=== PATIENT | male | born 1975 | race Caucasian/White ===

== ENCOUNTER 2019-05-13 16:18 | Inpatient (IN) | payer MEDICAID ==
[~2019-05-13] VITALS: Ht 172.7 cm; Wt 96.2 kg
--- NOTE | 2019-05-13 16:40 | NUR ---
ED Nurse Note: Patient waliked into ED c/o chest pain in the sternal area attepted to relieve chest pain since last night. patient reports he took nitroglycerin tablets (4) and aspirin today to relieve chest pain, but unable to relieve the pain. Last nitroglycerin was taken 30 minutes prior to arrival. patient reports he had stress test which result was abnormal on Friday, but left AMA.
[2019-05-13] MEDS ORDERED: ASPIRIN325 MG ORAL (16:57)
[2019-05-13] MEDS ORDERED: LISINOPRIL10 MG ORAL (16:57)
[2019-05-13] MEDS ORDERED: METOPROLOL TART25 MG ORAL (16:57)
[2019-05-13] MEDS ORDERED: PLAVIX75 MG ORAL (16:57)
[2019-05-13] MEDS ORDERED: ATORVASTATIN CA40 MG ORAL (16:57)
[2019-05-13] MEDS ORDERED: Morphine Sulfate 4mg/ml Inj (IV USE ONLY) IVP ONE ×2 (17:00→19:30)
[2019-05-13 17:08] VITALS: BP 130/91
[2019-05-13 17:12] LABS: BASOPHILS % (AUTO) 0.6 % (0.0-2.0); EOSINOPHILS % (AUTO) 1.7 % (0.0-3.0); HEMATOCRIT 35.8 % (42.0-52.0); HEMOGLOBIN 11.3 G/DL (14.2-18.0); LYMPHOCYTES % (AUTO) 21.9 % (20.0-45.0); MEAN CORPUSCULAR VOLUME 65 FL (80-99); MONOCYTES % (AUTO) 7.7 % (1.0-10.0); NEUTROPHILS % (AUTO) 68.1 % (45.0-75.0); PLATELET COUNT 220 K/UL (150-450); RED BLOOD COUNT 5.49 M/UL (4.70-6.10); RED CELL DISTRIBUTION WIDTH 14.5 % (11.6-14.8); WHITE BLOOD COUNT 5.5 K/UL (4.8-10.8)
--- NOTE | 2019-05-13 17:28 | Diagnostic Imaging Report ---
Indication: Chest pain Technique: One view of the chest Comparison: none Findings: Inspiration is suboptimal. The lungs and pleural spaces are clear. The heart size is normal Impression: Negative
[2019-05-13 17:40] LABS: ALANINE AMINOTRANSFERASE 35 U/L (12-78); ALBUMIN/GLOBULIN RATIO 1.3 (1.0-2.7); ALKALINE PHOSPHATASE 77 U/L (46-116); ANION GAP 7 mmol/L (5-15); ASPARTATE AMINO TRANSFERASE 22 U/L (15-37); BILIRUBIN,TOTAL 0.3 MG/DL (0.2-1.0); BLOOD UREA NITROGEN 17 mg/dL (7-18); CALCIUM 9.1 MG/DL (8.5-10.1); CARBON DIOXIDE 28 MMOL/L (21-32); CHLORIDE 99 MMOL/L (98-107); CKMB 0.7 NG/ML (0.0-3.6); CREATINE KINASE 60 U/L (26-308); POTASSIUM 5.3 MMOL/L (3.5-5.1); SODIUM 134 MMOL/L (136-145)
[2019-05-13] MEDS ORDERED: Insulin Human Regular 100units/ml 3ml IV ONE (18:00)
--- NOTE | 2019-05-13 18:57 | Emergency Room Report ---
History of Present Illness General Chief Complaint: Chest Pain Source: Patient Present Illness HPI 43-year-old male presents ED for evaluation. Patient complaining of chest pain started 2 days ago. Pressure-like, 7 out of 10, radiating to the left arm. States he took nitro with some relief but chest pain return. States he was at [facility] 2 days ago and had a positive stress test. Was told to be admitted but left AMA. Patient states he has had prior stents placed at [facility]. States chest pain did not resolve so he came today to the ED. Denies alcohol or drug use. No other aggravating relieving factors. Denies any other associated symptoms Allergies: Coded Allergies: KETOROLAC (Verified Allergy, Unknown, 05/13/19) Uncoded Allergies: FISH (Allergy, Unknown, 05/13/19) PENICILLIN (Allergy, Unknown, 05/13/19) Patient History Past Medical History: HTN, DC, CAD Past Surgical History: none Pertinent Family History: none Social History: Denies: smoking, alcohol use, drug use Immunizations: UTD Reviewed Nursing Documentation: PMH: Agreed; PSxH: Agreed Nursing Documentation-PMH Past Medical History: No History, Except For Hx Cardiac Problems: Yes - Stents x4, CHF Review of Systems All Other Systems: negative except mentioned in HPI Physical Exam Vital Signs Date Time Temp Pulse Resp B/P (MAP) Pulse Ox O2 Delivery O2 Flow Rate FiO2 05/13/19 16:32 98.2 100 16 129/70 (89) 99 Room Air Sp02 EP Interpretation: reviewed, normal General Appearance: no apparent distress, alert, GCS 15, non-toxic Head: normocephalic, atraumatic Eyes: bilateral eye normal inspection, bilateral eye PERRL ENT: hearing grossly normal, normal pharynx, no angioedema, normal voice Neck: full range of motion, supple/symm/no masses Respiratory: chest non-tender, lungs clear, normal breath sounds, speaking full sentences Cardiovascular #1: regular rate, rhythm, no edema Cardiovascular #2: 2+ carotid (R), 2+ carotid (L), 2+ radial (R), 2+ radial (L) , 2+ dorsalis pedis (R), 2+ dorsalis pedis (L) Gastrointestinal: normal bowel sounds, non tender, soft, non-distended, no guarding, no rebound Rectal: deferred Genitourinary: normal inspection, no CVA tenderness Musculoskeletal: back normal, gait/station normal, normal range of motion, non- tender Neurologic: alert, oriented x3, responsive, motor strength/tone normal, sensory intact, speech normal Psychiatric: judgement/insight normal, memory normal, mood/affect normal, no suicidal/homicidal ideation Reflexes: 3+ bicep (R), 3+ bicep (L), 3+ tricep (R), 3+ tricep (L), 3+ knee (R) , 3+ knee (L) Skin: normal color, no rash, warm/dry, well hydrated Lymphatic: no adenopathy Medical Decision Making Diagnostic Impression: Primary Impression: ACS (acute coronary syndrome) Additional Impression: Hyperglycemia ER Course Hospital Course 43-year-old male presents ED complaining of left-sided chest pain, improved with nitro then returned. h/o stents Differential diagnoses include: DC/unstable angina, contusion, muscle strain, PTX, rib fracture Clinical course Patient placed on stretcher. 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 After initial history and physical I ordered labs, EKG, chest x-ray, morphine labs reviewed- no leukocytosis, hb/hct stable, glucose 540 no evidence of DKA, trop negative EKG - NSR, no acute ischemic changes interpreted by me Chest x-ray- no acute process discussed findings with patient. No prior history of diabetes. Given insulin here. Given aspirin. Patient scheduled to see Radha Purvis as outpatient but has not yet. Case discussed with Dr Morocho and he agreed to accept the patient to his service for further care and support I. I feel this is a highly complex case requiring extensive working including EKG/Rhythm strip, Xray/CT/US, Blood/urine lab work, repeat exams while in ED, and administration of strong opiates/narcotics for pain control, admission to hospital or close patient follow up. Diagnosis - ACS, hyperglycemia admitted to telemetry in serious condition Labs Test 05/13/19 17:05 05/13/19 18:16 White Blood Count 5.5 K/UL (4.8-10.8) Red Blood Count 5.49 M/UL (4.70-6.10) Hemoglobin 11.3 G/DL (14.2-18.0) Hematocrit 35.8 % (42.0-52.0) Mean Corpuscular Volume 65 FL (80-99) Mean Corpuscular Hemoglobin 20.5 PG (27.0-31.0) Mean Corpuscular Hemoglobin Concent 31.5 G/DL (32.0-36.0) Red Cell Distribution Width 14.5 % (11.6-14.8) Platelet Count 220 K/UL (150-450) Mean Platelet Volume 6.6 FL (6.5-10.1) Neutrophils (%) (Auto) 68.1 % (45.0-75.0) Lymphocytes (%) (Auto) 21.9 % (20.0-45.0) Monocytes (%) (Auto) 7.7 % (1.0-10.0) Eosinophils (%) (Auto) 1.7 % (0.0-3.0) Basophils (%) (Auto) 0.6 % (0.0-2.0) Sodium Level 134 MMOL/L (136-145) Potassium Level 5.3 MMOL/L (3.5-5.1) Chloride Level 99 MMOL/L (98-107) Carbon Dioxide Level 28 MMOL/L (21-32) Anion Gap 7 mmol/L (5-15) Blood Urea Nitrogen 17 mg/dL (7-18) Creatinine 1.0 MG/DL (0.55-1.30) Estimat Glomerular Filtration Rate > 60 mL/min (>60) Glucose Level 540 MG/DL (74-106) Calcium Level 9.1 MG/DL (8.5-10.1) Total Bilirubin 0.3 MG/DL (0.2-1.0) Aspartate Amino Transf (AST/SGOT) 22 U/L (15-37) Alanine Aminotransferase (ALT/SGPT) 35 U/L (12-78) Alkaline Phosphatase 77 U/L (46-116) Total Creatine Kinase 60 U/L (26-308) Creatine Kinase MB 0.7 NG/ML (0.0-3.6) Creatine Kinase MB Relative Index 1.1 Troponin I 0.000 ng/mL (0.000-0.056) Total Protein 7.2 G/DL (6.4-8.2) Albumin 4.0 G/DL (3.4-5.0) Globulin 3.2 g/dL Albumin/Globulin Ratio 1.3 (1.0-2.7) Urine Opiates Screen Negative (NEGATIVE) Urine Barbiturates Screen Negative (NEGATIVE) Phencyclidine (PCP) Screen Negative (NEGATIVE) Urine Amphetamines Screen Negative (NEGATIVE) Urine Benzodiazepines Screen Negative (NEGATIVE) Urine Cocaine Screen Negative (NEGATIVE) Urine Marijuana (THC) Screen Negative (NEGATIVE) EKG Diagnostic Results Rate: normal Rhythm: NSR ST Segments: no acute changes ASA given to the pt in ED: Yes Rhythm Strip Diag. Results EP Interpretation: yes Rhythm: NSR, no PVC's, no ectopy Chest X-Ray Diagnostic Results Chest X-Ray Diagnostic Results : Chest X-Ray Ordered: Yes # of Views/Limited/Complete: 1 View Indication: Chest Pain EP Interpretation: Yes Interpretation: no consolidation, no effusion, no pneumothorax, no acute cardiopulmonary disease Impression: No acute disease Electronically Signed by: Electronically signed by Isaías Palomares MD Last Vital Signs Date Time Temp Pulse Resp B/P (MAP) Pulse Ox O2 Delivery O2 Flow Rate FiO2 05/13/19 17:09 110 14 Room Air 05/13/19 17:08 98.2 130/91 100 Status: improved Disposition: ADMITTED INPATIENT Condition: Serious Referrals: Radha Purvis MD (PCP) Isaías Palomares MD May 13, 2019 18:57
--- NOTE | 2019-05-13 19:05 | NUR ---
ED Nurse Note: notified Dr. Crowley that patient took aspirin 325 today already. it's ok not to give again. notified Dr. Crowley about patient c/o pain.
--- NOTE | 2019-05-13 19:09 | NUR ---
HAND-OFF: Report given to Dariela GOMEZ. endorsed all plan of care for the patient.
--- NOTE | 2019-05-13 19:15 | NUR ---
ED Nurse Note: RECIEVED REPORT FROM AM NURSE TO RESUME CARE, PT IN BED AWAKE, ALERT AND ORIENTED X 4, ON CARDIAC MONITORING, HAS PATENT IV SITE WITH FLUIDS INFUSING, PT DOES C/O HAVING CHEST PAIN AT 9/10 AND ASKING FOR PAIN MEDS, INFOMADYSON, WILL MEDICATE PT ORDERED AND PREPARE FOR HOSPITAL ADMISSION CARE IS RESUMED.
[2019-05-13 19:30] VITALS: BP 133/57
[2019-05-13] MEDS ORDERED: Nitroglycerin Subl 0.4mg tab SL PRN (19:45)
[2019-05-13] MEDS ORDERED: dilTIAZem HCl 25mg/5ml Inj IV PRN (19:45)
[2019-05-13] MEDS ORDERED: Miralax 17gm pkt ORAL PRN (19:45)
[2019-05-13] MEDS ORDERED: Albuterol/Ipratropium 3ml neb HHN PRN (19:45)
[2019-05-13] MEDS ORDERED: Enalaprilat 1.25mg/ml Inj IV PRN ×2 (19:45→21:30)
[2019-05-13] MEDS ORDERED: Dextrose 50% 25ml Syringe IV PRN (20:00)
--- NOTE | 2019-05-13 20:05 | NUR ---
ED Nurse Note: MEDS GIVEN FOR DIGNA FFECTIVE, PT REPORTS PAIN LEVEL AT 3/10, IS CURRENTLY HAVING BEDSIDE ULTRASOUND DONE, PT REMAINS ON CARDIAC MONITORING, WILL RESUME CARE WHEN COMPLETED.
--- NOTE | 2019-05-13 21:30 | NUR ---
NURSE NOTES: Received patient from ED. Patient ambulatory and steady, alert and oriented x4, calm and cooperative. On room air, no signs of respiratory distress. Oriented patient to the unit. Placed on gambling monitor, sinus rhythm. Skin intact. PIV 22 gauge on left forearm intact, patent, no signs of infiltration. Bed locked, in low position, call light within reach.
[2019-05-13] MEDS: Metoprolol Tartrate 12.5mg TAB ORAL SCH (22:10)
[2019-05-13] MEDS: Morphine Sulfate 2mg/ml Inj(IV/IM USE ONLY) IVP PRN (22:10)
[2019-05-13] MEDS: Heparin 5000 units/ml inj SUBQ SCH (22:19)
[2019-05-13] MEDS: NovoLOG Insulin Flexpen SUBQ SCH (22:20)
[2019-05-13 22:48] VITALS: BP 119/71
[2019-05-13 23:51] VITALS: BP 113/71
[2019-05-14 04:00] VITALS: BP 107/67
[2019-05-14] MEDS: Morphine Sulfate 2mg/ml Inj(IV/IM USE ONLY) IVP PRN ×5 (04:33→23:55)
--- NOTE | 2019-05-14 05:16 | NUR ---
NURSE NOTES: Patient c/o iv site irritation and light pain. Attempted to insert a new iv. Patient refused and insisted that we use a doppler ultrasound to guide the iv insertion. Explained that we use a vein finder to assist with IV insertions. Patient refused and insisted that he will only allow us to insert the iv with doppler ultrasound.
[2019-05-14] MEDS: NovoLOG Insulin Flexpen SUBQ SCH ×4 (05:46→21:22)
[2019-05-14] MEDS: Heparin 5000 units/ml inj SUBQ SCH ×3 (05:47→21:21)
--- NOTE | 2019-05-14 07:36 | NUR ---
HAND-OFF: Report given to Alonzo GOMEZ. Patient in stable condition. Plan of care endorsed.
--- NOTE | 2019-05-14 07:48 | NUR ---
NURSE NOTES: Report received from PATRICIA Hodges. Patient is a/o x 4,resting with open eyes. no c/o pain or acute distress at this time. per report patient iv side is irritated. will try to insert new iv SUKHWINDER. call light and frequent used objects are with in reach. bed in lowest position, rails up x 2 for safety reasons. will continue to monitor.
[2019-05-14 08:00] VITALS: BP 120/64
[2019-05-14 08:05] LABS: BASOPHILS % (AUTO) 0.4 % (0.0-2.0); EOSINOPHILS % (AUTO) 2.9 % (0.0-3.0); HEMATOCRIT 32.5 % (42.0-52.0); HEMOGLOBIN 10.4 G/DL (14.2-18.0); LYMPHOCYTES % (AUTO) 30.8 % (20.0-45.0); MEAN CORPUSCULAR VOLUME 66 FL (80-99); MONOCYTES % (AUTO) 8.5 % (1.0-10.0); NEUTROPHILS % (AUTO) 57.4 % (45.0-75.0); PLATELET COUNT 182 K/UL (150-450); RED BLOOD COUNT 4.94 M/UL (4.70-6.10); RED CELL DISTRIBUTION WIDTH 15.2 % (11.6-14.8); WHITE BLOOD COUNT 4.6 K/UL (4.8-10.8)
[2019-05-14 08:25] LABS: INR 0.9 (0.9-1.1)
[2019-05-14] MEDS: Metoprolol Tartrate 12.5mg TAB ORAL SCH ×2 (08:32→21:15)
[2019-05-14 08:39] LABS: CHOLESTEROL 121 MG/DL (< 200); HDL CHOLESTEROL 41 MG/DL (40-60); TRIGLYCERIDES 35 MG/DL (30-150)
--- NOTE | 2019-05-14 11:11 | NUR ---
CASE MANAGEMENT: INITIAL REVIEW 43 YO M PRESENTED TO ED FROM HOME CC: CP PMHx: HTN. NC. COPD. CHF. STENTS X4. SI:CP. ACS. T 98.2 HR 100 RR 16 B/P 129/70 SATS 99% ON RA NA 134 K 5.3 GLU 540 IS: NS BOLUS X1 MORPHINE IV X1 PATIENT ADMITTED TO TELE 05/13/2019 @ 1737 DCp; PATIENT TO BE DISCHARGED TO HOME ONCE MEDICALLY CLEARED. PLAN OF CARE: 2D ECHO SERIAL TROPONIN CARDIO EVAL 05/14/2019 SI:CP. ACS. T 98.4 HR 79 RR 20 B/P 120/64 SATS 97% ON RA WBC 4.6 TROPONIN (-) X2 IS: LOPRESSOR PO Q12H PLAVIX PO QD LISINOPRIL PO QD INSULIN ASPART SUB AC/HS TELE STATUS DCp; PATIENT TO BE DISCHARGED TO HOME ONCE MEDICALLY CLEARED. PLAN OF CARE: 2D ECHO SERIAL TROPONIN CARDIO EVAL Addendum: 05/14/19 at 1119 by Heidi Alberts CM INTERQUAL MET
[2019-05-14 12:00] VITALS: BP 104/60
--- NOTE | 2019-05-14 12:23 | Consultation ---
History of Present Illness General Date patient seen: May 14, 2019 Chief Complaint: Chest Pain Present Illness HPI 43-year-old male with hx of CAD, 4 coronary stents presented to ED for evaluation of chest pain started 2 days ago. Pressure-like, 7 out of 10, radiating to the left arm. States he took nitro with some relief but chest pain return so he came today to the ED. Denies alcohol or drug use. He is admitted to telemetry for further work up. Allergies: Coded Allergies: FISH DERIVED (Unverified Allergy, Unknown, 05/13/19) KETOROLAC (Verified Allergy, Unknown, 05/13/19) PENICILLINS (Unverified Allergy, Unknown, 05/13/19) Uncoded Allergies: FISH (Allergy, Unknown, 05/13/19) PENICILLIN (Allergy, Unknown, 05/13/19) Medication History Scheduled Aspirin* (Aspirin*), 325 MG ORAL DAILY, (Reported) Atorvastatin Calcium* (Atorvastatin Calcium*), 40 MG ORAL BEDTIME, (Reported) Clopidogrel Bisulfate* (Plavix*), 75 MG ORAL DAILY, (Reported) Lisinopril* (Lisinopril*), 5 MG ORAL DAILY, (Reported) Metoprolol Tartrate* (Metoprolol Tartrate*), 12.5 MG ORAL EVERY 12 HOURS, ( Reported) Patient History Healthcare decision maker Resuscitation status Full Code Advanced Directive on File Past Medical/Surgical History Past Medical/Surgical History: (1) CAD (coronary artery disease) (2) Stented coronary artery (3) Diabetes mellitus Review of Systems All Other Systems: negative except mentioned in HPI Physical Exam General Appearance: WD/WN, no apparent distress Lines, tubes and drains: peripheral HEENT: normocephalic, atraumatic Neck: non-tender, normal alignment Respiratory/Chest: chest wall non-tender, lungs clear Breasts: no masses Cardiovascular/Chest: normal peripheral pulses Genitourinary/Rectal: normal genital exam Last 24 Hour Vital Signs Date Time Temp Pulse Resp B/P (MAP) Pulse Ox O2 Delivery O2 Flow Rate FiO2 05/14/19 09:26 98.4 05/14/19 09:00 Room Air 05/14/19 08:32 79 120/64 05/14/19 08:00 98.4 79 20 120/64 (82) 97 05/14/19 08:00 75 05/14/19 04:00 97.9 58 20 107/67 (80) 98 05/14/19 03:36 61 05/13/19 23:54 92 05/13/19 23:51 98.5 89 20 113/71 (85) 98 05/13/19 22:48 98.3 77 20 119/71 (87) 98 05/13/19 22:29 Room Air 05/13/19 22:10 76 133/57 05/13/19 21:38 75 05/13/19 20:57 98.2 110 14 133/57 100 Room Air 76 05/13/19 20:03 98.2 05/13/19 19:30 98.2 76 14 133/57 100 Room Air 05/13/19 17:33 98.2 05/13/19 17:09 110 14 Room Air 05/13/19 17:08 98.2 110 14 130/91 100 Room Air 05/13/19 16:32 98.2 100 16 129/70 (89) 99 Room Air Intake and Output 05/13/19 05/14/19 19:00 07:00 Intake Total 120 ml Balance 120 ml Other 120 ml # Voids 2 Laboratory Tests Test 05/13/19 17:05 05/13/19 18:16 05/14/19 07:00 White Blood Count 5.5 K/UL (4.8-10.8) 4.6 K/UL (4.8-10.8) L Red Blood Count 5.49 M/UL (4.70-6.10) 4.94 M/UL (4.70-6.10) Hemoglobin 11.3 G/DL (14.2-18.0) L 10.4 G/DL (14.2-18.0) L Hematocrit 35.8 % (42.0-52.0) L 32.5 % (42.0-52.0) L Mean Corpuscular Volume 65 FL (80-99) L 66 FL (80-99) L Mean Corpuscular Hemoglobin 20.5 PG (27.0-31.0) L 21.1 PG (27.0-31.0) L Mean Corpuscular Hemoglobin Concent 31.5 G/DL (32.0-36.0) L 32.0 G/DL (32.0-36.0) Red Cell Distribution Width 14.5 % (11.6-14.8) 15.2 % (11.6-14.8) H Platelet Count 220 K/UL (150-450) 182 K/UL (150-450) Mean Platelet Volume 6.6 FL (6.5-10.1) 7.8 FL (6.5-10.1) Neutrophils (%) (Auto) 68.1 % (45.0-75.0) 57.4 % (45.0-75.0) Lymphocytes (%) (Auto) 21.9 % (20.0-45.0) 30.8 % (20.0-45.0) Monocytes (%) (Auto) 7.7 % (1.0-10.0) 8.5 % (1.0-10.0) Eosinophils (%) (Auto) 1.7 % (0.0-3.0) 2.9 % (0.0-3.0) Basophils (%) (Auto) 0.6 % (0.0-2.0) 0.4 % (0.0-2.0) Sodium Level 134 MMOL/L (136-145) L Potassium Level 5.3 MMOL/L (3.5-5.1) H Chloride Level 99 MMOL/L (98-107) Carbon Dioxide Level 28 MMOL/L (21-32) Anion Gap 7 mmol/L (5-15) Blood Urea Nitrogen 17 mg/dL (7-18) Creatinine 1.0 MG/DL (0.55-1.30) Estimat Glomerular Filtration Rate > 60 mL/min (>60) Glucose Level 540 MG/DL (74-106) *H Calcium Level 9.1 MG/DL (8.5-10.1) Total Bilirubin 0.3 MG/DL (0.2-1.0) Aspartate Amino Transf (AST/SGOT) 22 U/L (15-37) Alanine Aminotransferase (ALT/SGPT) 35 U/L (12-78) Alkaline Phosphatase 77 U/L (46-116) Total Creatine Kinase 60 U/L (26-308) Creatine Kinase MB 0.7 NG/ML (0.0-3.6) Creatine Kinase MB Relative Index 1.1 Troponin I 0.000 ng/mL (0.000-0.056) 0.000 ng/mL (0.000-0.056) Total Protein 7.2 G/DL (6.4-8.2) Albumin 4.0 G/DL (3.4-5.0) Globulin 3.2 g/dL Albumin/Globulin Ratio 1.3 (1.0-2.7) Urine Opiates Screen Negative (NEGATIVE) Urine Barbiturates Screen Negative (NEGATIVE) Phencyclidine (PCP) Screen Negative (NEGATIVE) Urine Amphetamines Screen Negative (NEGATIVE) Urine Benzodiazepines Screen Negative (NEGATIVE) Urine Cocaine Screen Negative (NEGATIVE) Urine Marijuana (THC) Screen Negative (NEGATIVE) Prothrombin Time 9.5 SEC (9.30-11.50) Prothromb Time International Ratio 0.9 (0.9-1.1) Activated Partial Thromboplast Time 22 SEC (23-33) L C-Reactive Protein, Quantitative < 0.4 mg/dL (0.00-0.90) Triglycerides Level 35 MG/DL (30-150) Cholesterol Level 121 MG/DL (< 200) LDL Cholesterol 70 mg/dL (<100) HDL Cholesterol 41 MG/DL (40-60) Cholesterol/HDL Ratio 3.0 (3.3-4.4) L Thyroid Stimulating Hormone (TSH) 3.521 uiU/mL (0.358-3.740) Height (Feet): 5 Height (Inches): 8.00 Weight (Pounds): 212 Medications Current Medications Medications (Trade) Dose Ordered Sig/Geoffrey Route PRN Reason Start Time Stop Time Status Last Admin Dose Admin Acetaminophen (Tylenol) 650 mg Q4H PRN ORAL T>100.5 05/13/19 19:45 06/12/19 19:44 Albuterol/ Ipratropium (Albuterol/ Ipratropium) 3 ml Q4H PRN HHN Shortness of Breath 05/13/19 19:45 05/18/19 19:44 Clopidogrel Bisulfate (Plavix) 75 mg DAILY ORAL 05/14/19 09:00 06/13/19 08:59 05/14/19 08:32 Dextrose (Dextrose 50%) 25 ml Q30M PRN IV Hypoglycemia 05/13/19 20:00 06/12/19 19:45 Dextrose (Dextrose 50%) 50 ml Q30M PRN IV hypoglycemia 05/13/19 20:00 06/12/19 19:59 Diltiazem HCl (Cardizem) 10 mg EVERY HOUR PRN IV heart rate more than 120BPM 05/13/19 19:45 06/12/19 19:44 Enalaprilat (Vasotec) 2.5 mg Q6H PRN IV sbp more than 160 05/13/19 21:30 06/12/19 21:29 UNV Heparin Sodium (Porcine) (Heparin 5000 units/ml) 5,000 units EVERY 8 HOURS SUBQ 05/13/19 22:00 06/12/19 21:59 05/13/19 22:19 Insulin Aspart (NovoLOG) BEFORE MEALS AND HS SUBQ 05/13/19 22:30 06/12/19 22:29 05/14/19 11:17 Lisinopril (Prinivil) 5 mg DAILY ORAL 05/14/19 09:00 06/13/19 08:59 UNV Metoprolol Tartrate (Lopressor) 12.5 mg EVERY 12 HOURS ORAL 05/13/19 22:00 06/12/19 21:59 05/14/19 08:32 Morphine Sulfate (Morphine Sulfate) 2 mg Q4H PRN IVP Severe Pain (Pain Scale 7-10) 05/13/19 19:45 05/20/19 19:44 05/14/19 08:56 Nitroglycerin (Ntg) 0.4 mg Q5MIN X 3 DOSES PRN SL Prn Chest Pain 05/13/19 19:45 06/12/19 19:44 Ondansetron HCl (Zofran) 4 mg Q6H PRN IVP Nausea & Vomiting 05/13/19 19:45 06/12/19 19:44 05/14/19 08:56 Pantoprazole (Protonix) 40 mg DAILY ORAL 05/14/19 09:00 06/13/19 08:59 05/14/19 08:32 Polyethylene Glycol (Miralax) 17 gm DAILYPRN PRN ORAL Constipation 05/13/19 19:45 06/12/19 19:44 Temazepam (Restoril) 15 mg HSPRN PRN ORAL Insomnia 05/13/19 21:00 05/20/19 20:59 Assessment/Plan Problem List: (1) ACS (acute coronary syndrome) ICD Codes: I24.9 - Acute ischemic heart disease, unspecified SNOMED: 441029293 (2) Stented coronary artery ICD Codes: Z95.5 - Presence of coronary angioplasty implant and graft SNOMED: 17357778, 902147937 (3) Hyperglycemia ICD Codes: R73.9 - Hyperglycemia, unspecified SNOMED: 72898143 (4) Diabetes mellitus ICD Codes: E11.9 - Type 2 diabetes mellitus without complications SNOMED: 66644951 (5) CAD (coronary artery disease) ICD Codes: I25.10 - Atherosclerotic heart disease of [place] coronary artery without angina pectoris SNOMED: 71456965 Assessment/Plan: serial ekg, troponin, echocardiogram cardiology to see symptomatic treatment Balta Olsen MD May 14, 2019 12:23
--- NOTE | 2019-05-14 13:50 | Cardiac Electrophysiology PN ---
Subjective Subjective [id number] Objective Last 24 Hour Vital Signs Date Time Temp Pulse Resp B/P (MAP) Pulse Ox O2 Delivery O2 Flow Rate FiO2 05/14/19 12:00 98.5 78 20 104/60 (75) 99 05/14/19 09:26 98.4 05/14/19 09:00 Room Air 05/14/19 08:32 79 120/64 05/14/19 08:00 98.4 79 20 120/64 (82) 97 05/14/19 08:00 75 05/14/19 04:00 97.9 58 20 107/67 (80) 98 05/14/19 03:36 61 05/13/19 23:54 92 05/13/19 23:51 98.5 89 20 113/71 (85) 98 05/13/19 22:48 98.3 77 20 119/71 (87) 98 05/13/19 22:29 Room Air 05/13/19 22:10 76 133/57 05/13/19 21:38 75 05/13/19 20:57 98.2 110 14 133/57 100 Room Air 76 05/13/19 20:03 98.2 05/13/19 19:30 98.2 76 14 133/57 100 Room Air 05/13/19 17:33 98.2 05/13/19 17:09 110 14 Room Air 05/13/19 17:08 98.2 110 14 130/91 100 Room Air 05/13/19 16:32 98.2 100 16 129/70 (89) 99 Room Air Intake and Output 05/13/19 05/14/19 19:00 07:00 Intake Total 120 ml Balance 120 ml Other 120 ml # Voids 2 Laboratory Tests Test 05/13/19 17:05 05/13/19 18:16 05/14/19 07:00 White Blood Count 5.5 K/UL (4.8-10.8) 4.6 K/UL (4.8-10.8) L Red Blood Count 5.49 M/UL (4.70-6.10) 4.94 M/UL (4.70-6.10) Hemoglobin 11.3 G/DL (14.2-18.0) L 10.4 G/DL (14.2-18.0) L Hematocrit 35.8 % (42.0-52.0) L 32.5 % (42.0-52.0) L Mean Corpuscular Volume 65 FL (80-99) L 66 FL (80-99) L Mean Corpuscular Hemoglobin 20.5 PG (27.0-31.0) L 21.1 PG (27.0-31.0) L Mean Corpuscular Hemoglobin Concent 31.5 G/DL (32.0-36.0) L 32.0 G/DL (32.0-36.0) Red Cell Distribution Width 14.5 % (11.6-14.8) 15.2 % (11.6-14.8) H Platelet Count 220 K/UL (150-450) 182 K/UL (150-450) Mean Platelet Volume 6.6 FL (6.5-10.1) 7.8 FL (6.5-10.1) Neutrophils (%) (Auto) 68.1 % (45.0-75.0) 57.4 % (45.0-75.0) Lymphocytes (%) (Auto) 21.9 % (20.0-45.0) 30.8 % (20.0-45.0) Monocytes (%) (Auto) 7.7 % (1.0-10.0) 8.5 % (1.0-10.0) Eosinophils (%) (Auto) 1.7 % (0.0-3.0) 2.9 % (0.0-3.0) Basophils (%) (Auto) 0.6 % (0.0-2.0) 0.4 % (0.0-2.0) Sodium Level 134 MMOL/L (136-145) L Potassium Level 5.3 MMOL/L (3.5-5.1) H Chloride Level 99 MMOL/L (98-107) Carbon Dioxide Level 28 MMOL/L (21-32) Anion Gap 7 mmol/L (5-15) Blood Urea Nitrogen 17 mg/dL (7-18) Creatinine 1.0 MG/DL (0.55-1.30) Estimat Glomerular Filtration Rate > 60 mL/min (>60) Glucose Level 540 MG/DL (74-106) *H Calcium Level 9.1 MG/DL (8.5-10.1) Total Bilirubin 0.3 MG/DL (0.2-1.0) Aspartate Amino Transf (AST/SGOT) 22 U/L (15-37) Alanine Aminotransferase (ALT/SGPT) 35 U/L (12-78) Alkaline Phosphatase 77 U/L (46-116) Total Creatine Kinase 60 U/L (26-308) Creatine Kinase MB 0.7 NG/ML (0.0-3.6) Creatine Kinase MB Relative Index 1.1 Troponin I 0.000 ng/mL (0.000-0.056) 0.000 ng/mL (0.000-0.056) Total Protein 7.2 G/DL (6.4-8.2) Albumin 4.0 G/DL (3.4-5.0) Globulin 3.2 g/dL Albumin/Globulin Ratio 1.3 (1.0-2.7) Urine Opiates Screen Negative (NEGATIVE) Urine Barbiturates Screen Negative (NEGATIVE) Phencyclidine (PCP) Screen Negative (NEGATIVE) Urine Amphetamines Screen Negative (NEGATIVE) Urine Benzodiazepines Screen Negative (NEGATIVE) Urine Cocaine Screen Negative (NEGATIVE) Urine Marijuana (THC) Screen Negative (NEGATIVE) Prothrombin Time 9.5 SEC (9.30-11.50) Prothromb Time International Ratio 0.9 (0.9-1.1) Activated Partial Thromboplast Time 22 SEC (23-33) L C-Reactive Protein, Quantitative < 0.4 mg/dL (0.00-0.90) Triglycerides Level 35 MG/DL (30-150) Cholesterol Level 121 MG/DL (< 200) LDL Cholesterol 70 mg/dL (<100) HDL Cholesterol 41 MG/DL (40-60) Cholesterol/HDL Ratio 3.0 (3.3-4.4) L Thyroid Stimulating Hormone (TSH) 3.521 uiU/mL (0.358-3.740) Kev Hernández MD May 14, 2019 13:50
[2019-05-14] MEDS ORDERED: Lexiscan 0.4mg/5ml syringe IV PRN (13:52)
[2019-05-14 16:00] VITALS: BP 120/75
--- NOTE | 2019-05-14 17:42 | NUR ---
NURSE NOTES: new iv inserted in left wrist. per patient his stress test result from [place] [facility] will be here by tomorrow morning DR. Hernández made aware.
--- NOTE | 2019-05-14 18:38 | History & Physical ---
History and Physical History & Physicial (1) ACS (acute coronary syndrome) ICD Codes: I24.9 - Acute ischemic heart disease, unspecified SNOMED: 188005431 (2) Stented coronary artery ICD Codes: Z95.5 - Presence of coronary angioplasty implant and graft SNOMED: 06171473, 410107418 (3) Hyperglycemia ICD Codes: R73.9 - Hyperglycemia, unspecified SNOMED: 11524267 (4) Diabetes mellitus ICD Codes: E11.9 - Type 2 diabetes mellitus without complications SNOMED: 85086067 (5) CAD (coronary artery disease) ICD Codes: I25.10 - Atherosclerotic heart disease of [place] coronary artery without angina pectoris SNOMED: 06149849 Assessment/Plan: serial ekg, troponin, echocardiogram cardiology to see symptomatic treatment Alirio Morocho MD May 14, 2019 18:38
--- NOTE | 2019-05-14 19:15 | NUR ---
NURSE NOTES: Received report from Alonzo GOMEZ. Patient in bed, alert and oriented x4, on room air, no signs of respiratory distress, calm and cooperative. Bed in low position, locked, call light within reach. IV on left wrist intact and patent, no signs of infiltration, no c/o pain when flushing.
--- NOTE | 2019-05-14 19:33 | NUR ---
HAND-OFF: Report given to Nani GOMEZ
--- NOTE | 2019-05-14 19:45 | Consultation ---
DATE OF CONSULTATION: 05/14/2019 CARDIOLOGY CONSULTATION CONSULTING PHYSICIAN: Kev Hernández M.D. REFERRING PHYSICIAN: Alirio Morocho M.D. REASON FOR CONSULTATION: Chest pain in the patient with history of coronary artery disease. HISTORY OF PRESENT ILLNESS: The patient is a 43-year-old gentleman with history of hypertension, diabetes, and hyperlipidemia as well as history of coronary artery disease with history of 3 stents in the LAD and 1 stent in the RCA at [facility] in 2016 per patient. The patient apparently was 3 days ago and presented with chest pain and had abnormal stress test and was told that he needs cardiac catheterization. The patient however signed against medical advice and he said that he needs to come to [place]. The patient stated that his chest pain did not resolve and so he came to the emergency room for further evaluation. REVIEW OF SYSTEMS: Thoroughly performed and was negative other than what was mentioned in the history of present illness. PAST MEDICAL HISTORY: As mentioned above. FAMILY HISTORY: Noncontributory. SOCIAL HISTORY: Denies smoke and drinking alcohol. Lives at home. PHYSICAL EXAMINATION: VITAL SIGNS: Blood pressure 129/70, pulse is 100, respirations 18, and he is afebrile. HEAD AND NECK: Showed no JVD or carotid bruits. LUNGS: Clear. CARDIOVASCULAR: Shows regular S1 and S2 with no gallop or murmur. ABDOMEN: Soft. EXTREMITIES: No pitting edema. LABORATORY AND DIAGNOSTIC DATA: His EKG showed normal sinus rhythm. He has normal electrocardiogram. His labs show white count of 4.7, hematocrit 10.4, hematocrit of 32.5, and platelet count of 182,000. Sodium 134, potassium 5.3, BUN of 17, creatinine 1, and glucose of 540. Troponin is negative x2. His urine toxicology screen is negative. ASSESSMENT AND PLAN: 1. Chest pain. The patient stated that he has 4 stents in the LAD and circumflex in 2016. He is already ruled out for myocardial infarction and his EKG is completely normal. We will try to get the results of his stress test from [facility] and if it is positive, then we will try to transfer the patient to a contracted facility. In the meantime, continue the patient on aspirin, Plavix, and metoprolol. 2. Hypertension. On metoprolol 12.5 mg b.i.d., and lisinopril 5 mg daily. 3. Diabetes . On insulin. If we cannot get the results of the stress test from [facility], we most likely need to repeat a stress test especially that EKG and troponins have been negative. Thank you very much, Dr. Morocho, for allowing me to participate in the care of this patient. Please do not hesitate to contact me for any questions regarding my evaluation. Kev Hernández M.D. DR: BLADIMIR JOB#: [id number] CC:
--- NOTE | 2019-05-14 19:53 | NUR ---
NURSE NOTES: Morphine 2mg IV administered for recurrent chest pain (MD aware). See MAR.
[2019-05-14 20:00] VITALS: BP 111/60
[2019-05-15] VITALS: BP 116/74
--- NOTE | 2019-05-15 | History and Physical Report ---
DATE OF ADMISSION: 05/13/2019 CHIEF COMPLAINT: Chest pain. HISTORY OF PRESENT ILLNESS: This is a 43-year-old gentleman with past medical history significant for coronary artery disease with history of myocardial infarction, but with a stent placement x4 in 2016, who presented to the emergency room complaining of chest pain that has been going on for past few days. The patient's chest pain is pressure-like, 7/10 intensity, radiation to the left arm, took nitroglycerin with some relief, who just came back from [place], had a stress test done last Friday with positive results and the patient shortly after initial evaluation in the emergency room, was admitted to the hospital with chest pain, possible acute coronary syndrome. PAST MEDICAL HISTORY/PAST SURGICAL HISTORY: As above. History of coronary disease status post stent placement x4 with mild myocardial infarction in 2016. Denies any past surgical history. MEDICATIONS AT HOME: Significant for aspirin, atorvastatin, Plavix, lisinopril, and metoprolol. ALLERGIES: Fish oil and fish oil derivatives, penicillin, and ketorolac. SOCIAL HISTORY: The patient denies any smoking, alcohol, or drugs. He quit smoking in 2016. He is an ex-smoker, he smoked 16-1/2 half years, 1 pack smoker. 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 FAMILY HISTORY: Father with heart disease at the age of 57 and mother just recently with breast cancer at age of 89. REVIEW OF SYSTEMS: Mostly as above. Denies any dysuria, frequency, or hematuria. Denies any hemoptysis or hematochezia. Denies any suicidal or homicidal ideation. Denies any loss of consciousness or double vision. Denies any headache or bowel or urine incontinence. PHYSICAL EXAMINATION: VITAL SIGNS: On admission, temperature 98.2, pulse of 100, respirations 16, and blood pressure 129/70. GENERAL: The patient is awake, responsive, and in no acute distress. HEAD AND NECK: Pupils are reactive to light. Extraocular movements intact. Neck was supple. No JVD. LUNGS: Good air entry. No wheezing or rales. HEART: Reveals S1 and S2. Regular rhythm. No gallops. ABDOMEN: Soft, nondistended, and nontender. Positive bowel sounds. EXTREMITIES: No cyanosis, clubbing, or edema. NEUROLOGIC: Cranial nerves II through XII grossly intact. Motor is 5/5 in all extremities. Gait is intact. RECTAL AND GENITOURINARY: Refused and deferred. PSYCHIATRIC: Mood and affect is intact. SKIN: Has a tattoo in the bilateral upper extremity as well as trunk area. LABORATORY DATA: WBC of 5.5, hemoglobin 11, hematocrit 35, and platelets is 220,000. The patient's glucose level is 540. Sodium 134, potassium 5.2, chloride 99, bicarbonate 28, BUN 17, and creatinine 1.0. First and second troponin is 0.00. C-reactive protein less than 0.04. Cholesterol is 121. Urine drug screen is negative. PT of 9.5, INR is 0.9, and PTT of 22. The patient had a chest x-ray negative and carotid duplex is also negative. ASSESSMENT: 1. Chest pain, possible acute coronary syndrome. 2. History of coronary disease status post percutaneous transluminal coronary angioplasty with stent placement x4. 3. Hyperglycemia, most likely secondary to new diagnosis of diabetes type 2. 4. Family history of coronary disease. PLAN: 1. Admit the patient to telemetry. 2. We will follow up with Dr. Hernández from Cardiology and Dr. Olsen from Pulmonary Critical Care. 3. We will try to obtain the stress test results from the [facility] mostly recently done and monitor the troponin level. 4. Code status is Full Code. 5. DVT prophylaxis with heparin subcutaneous. 6. We will resume home medication. Alirio Morocho M.D. DR: CELIO JOB#: [id number] CC:
[2019-05-15 04:00] VITALS: BP 119/76
[2019-05-15] MEDS: Morphine Sulfate 2mg/ml Inj(IV/IM USE ONLY) IVP PRN ×4 (05:58→16:48)
[2019-05-15] MEDS: NovoLOG Insulin Flexpen SUBQ SCH ×4 (06:14→21:47)
[2019-05-15] MEDS: Heparin 5000 units/ml inj SUBQ SCH ×3 (06:16→21:47)
--- NOTE | 2019-05-15 07:10 | NUR ---
HAND-OFF: Report given to Bhupendra GOMEZ. Patient in stable condition, plan of care endorsed.
--- NOTE | 2019-05-15 07:13 | NUR ---
NURSE NOTES: Received report from Carroll Aggarwal RN. Patient in bed, alert and oriented x4, on room air, no signs of respiratory distress, denies chest pain, calm and cooperative. Bed in low position, locked, call light within reach. IV on left wrist intact and patent, and no signs of infiltration. Patient was given breakfast. Will follow up with plan of care.
[2019-05-15 08:00] VITALS: BP 111/69
--- NOTE | 2019-05-15 08:41 | Pulmonology Progress Note ---
Assessment/Plan Assessment/Plan ASSESSMENT Chest pain in patient with the extensive coronary artery disease Possible ACS Coronary artery disease, status post PTCA and stents x4 History of LA Family history of coronary disease Hyperglycemia New onset of diabetes mellitus, [id number] PLAN OF CARE tele serial troponin negative; EKG revealed no acute ischemic changes, patient was ruled out for acute LA ECHO with pEF 60- 65%, no WMA venous duplex bilateral lower extremity -negative lipid panel stable, TSH WNL urine tox screen negative CXR negative continue with dAPL therapy O2 PRN to keep pulse ox above 90% and HHN PRN DVT, GI prophylaxis BP management with beta-yuri and ALEXUS inhibitor Nitro prn cardio follows nuclear stress test pending BS management with SSI, BS still high, add Levemir, check hemoglobin A1c case discussed and evaluated by supervising physician Subjective Allergies: Coded Allergies: FISH DERIVED (Unverified Allergy, Unknown, 05/13/19) KETOROLAC (Verified Allergy, Unknown, 05/13/19) PENICILLINS (Unverified Allergy, Unknown, 05/13/19) Uncoded Allergies: FISH (Allergy, Unknown, 05/13/19) PENICILLIN (Allergy, Unknown, 05/13/19) Subjective still reports intermittent CP with SOB pulse ox stable on RA all troponin negative Objective Last 24 Hour Vital Signs Date Time Temp Pulse Resp B/P (MAP) Pulse Ox O2 Delivery O2 Flow Rate FiO2 05/15/19 08:29 Room Air 05/15/19 08:00 98.2 112 18 111/69 (83) 97 05/15/19 04:00 98.0 70 19 119/76 (90) 98 05/15/19 03:59 57 05/15/19 00:00 97.8 68 18 116/74 (88) 97 05/14/19 23:57 68 05/14/19 21:15 68 111/60 05/14/19 21:00 Room Air 05/14/19 20:11 96.8 05/14/19 20:00 96.8 68 18 111/60 (77) 98 05/14/19 19:56 67 05/14/19 18:30 99 18 99 Room Air 21 05/14/19 16:00 98.1 71 20 120/75 (90) 99 05/14/19 16:00 88 05/14/19 12:00 78 05/14/19 12:00 98.5 78 20 104/60 (75) 99 05/14/19 09:00 Room Air Intake and Output 05/14/19 05/15/19 19:00 07:00 Intake Total 1440 ml Balance 1440 ml Intake Oral 1440 ml # Voids 5 3 General Appearance: no acute distress HEENT: normocephalic, atraumatic, anicteric, mucous membranes moist, PERRL Respiratory/Chest: lungs clear, no respiratory distress, no accessory muscle use Cardiovascular: normal rate, regular rhythm, no JVD Abdomen: normal bowel sounds, soft, non tender, non distended Extremities: no edema, pedal pulses normal Skin: no rash, other Neurologic/Psychiatric: no motor/sensory deficits, alert, oriented x 3, responsive Musculoskeletal: normal muscle bulk Current Medications Medications (Trade) Dose Ordered Sig/Geoffrey Route PRN Reason Start Time Stop Time Status Last Admin Dose Admin Acetaminophen (Tylenol) 650 mg Q4H PRN ORAL T>100.5 05/13/19 19:45 06/12/19 19:44 Albuterol/ Ipratropium (Albuterol/ Ipratropium) 3 ml Q4H PRN HHN Shortness of Breath 05/13/19 19:45 05/18/19 19:44 Clopidogrel Bisulfate (Plavix) 75 mg DAILY ORAL 05/14/19 09:00 06/13/19 08:59 05/14/19 08:32 Dextrose (Dextrose 50%) 25 ml Q30M PRN IV Hypoglycemia 05/13/19 20:00 06/12/19 19:45 Dextrose (Dextrose 50%) 50 ml Q30M PRN IV hypoglycemia 05/13/19 20:00 06/12/19 19:59 Diltiazem HCl (Cardizem) 10 mg EVERY HOUR PRN IV heart rate more than 120BPM 05/13/19 19:45 06/12/19 19:44 Enalaprilat (Vasotec) 2.5 mg Q6H PRN IV sbp more than 160 05/13/19 21:30 06/12/19 21:29 UNV Heparin Sodium (Porcine) (Heparin 5000 units/ml) 5,000 units EVERY 8 HOURS SUBQ 05/13/19 22:00 06/12/19 21:59 05/15/19 06:16 Insulin Aspart (NovoLOG) BEFORE MEALS AND HS SUBQ 05/13/19 22:30 06/12/19 22:29 05/15/19 06:14 Lisinopril (Prinivil) 5 mg DAILY ORAL 05/14/19 09:00 06/13/19 08:59 UNV Metoprolol Tartrate (Lopressor) 12.5 mg EVERY 12 HOURS ORAL 05/13/19 22:00 06/12/19 21:59 05/14/19 21:15 Morphine Sulfate (Morphine Sulfate) 2 mg Q4H PRN IVP Severe Pain (Pain Scale 7-10) 05/13/19 19:45 05/20/19 19:44 05/15/19 05:58 Nitroglycerin (Ntg) 0.4 mg Q5MIN X 3 DOSES PRN SL Prn Chest Pain 05/13/19 19:45 06/12/19 19:44 Ondansetron HCl (Zofran) 4 mg Q6H PRN IVP Nausea & Vomiting 05/13/19 19:45 06/12/19 19:44 05/14/19 08:56 Pantoprazole (Protonix) 40 mg DAILY ORAL 05/14/19 09:00 06/13/19 08:59 05/14/19 08:32 Polyethylene Glycol (Miralax) 17 gm DAILYPRN PRN ORAL Constipation 05/13/19 19:45 06/12/19 19:44 Regadenoson (Lexiscan) 0.4 mg ONCE PRN IV CARDIOLOGY 05/14/19 13:52 05/16/19 23:59 Temazepam (Restoril) 15 mg HSPRN PRN ORAL Insomnia 05/13/19 21:00 05/20/19 20:59 Hanh Devries STEEL BURNER May 15, 2019 08:41
[2019-05-15] MEDS: Metoprolol Tartrate 12.5mg TAB ORAL SCH ×2 (08:50→21:33)
--- NOTE | 2019-05-15 09:24 | Diagnostic Imaging Report ---
APPROVED REPORT CPT Code: 68552 Present Symptoms Comments: BILATERAL LEGS PAIN. BILATERAL: Imaging reveals a patent deep venous system bilaterally. There is no evidence of thrombus within the femoral, popliteal or tibial segments. The greater saphenous veins are also within normal limits. Doppler indicates normal spontaneous flow within these segments.
[2019-05-15] MEDS: Aspirin EC 81mg tab ORAL SCH (10:37)
[2019-05-15] MEDS: Lisinopril 2.5mg tab ORAL SCH (11:00)
[2019-05-15] MEDS: Levemir Flexpen SUBQ SCH (11:48)
--- NOTE | 2019-05-15 11:50 | NUR ---
NURSE NOTES: @10:50am: Spoke with Marbin from pharmacy regarding Levemir pen. @11:40am: Spoke with Marbin from pharmacy about Levemir pen for the second time. @11:42am: Received Levemir pen.
[2019-05-15 12:00] VITALS: BP 103/61
[2019-05-15 12:12] LABS: ANION GAP 9 mmol/L (5-15); BLOOD UREA NITROGEN 14 mg/dL (7-18); CALCIUM 8.9 MG/DL (8.5-10.1); CARBON DIOXIDE 25 MMOL/L (21-32); CHLORIDE 100 MMOL/L (98-107); CREATININE 0.7 MG/DL (0.55-1.30); POTASSIUM 3.9 MMOL/L (3.5-5.1); SODIUM 134 MMOL/L (136-145)
--- NOTE | 2019-05-15 14:38 | Internal Med Progress Note ---
Subjective Physician Name Dhaval Bustillos Attending Physician Alirio Morocho MD Current Medications Medications (Trade) Dose Ordered Sig/Geoffrey Route PRN Reason Start Time Stop Time Status Last Admin Dose Admin Acetaminophen (Tylenol) 650 mg Q4H PRN ORAL T>100.5 05/13/19 19:45 06/12/19 19:44 Albuterol/ Ipratropium (Albuterol/ Ipratropium) 3 ml Q4H PRN HHN Shortness of Breath 05/13/19 19:45 05/18/19 19:44 Aspirin (Ecotrin) 81 mg DAILY ORAL 05/15/19 10:00 06/14/19 09:59 05/15/19 10:37 Clopidogrel Bisulfate (Plavix) 75 mg DAILY ORAL 05/14/19 09:00 06/13/19 08:59 05/15/19 08:50 Dextrose (Dextrose 50%) 25 ml Q30M PRN IV Hypoglycemia 05/13/19 20:00 06/12/19 19:45 Dextrose (Dextrose 50%) 50 ml Q30M PRN IV hypoglycemia 05/13/19 20:00 06/12/19 19:59 Diltiazem HCl (Cardizem) 10 mg EVERY HOUR PRN IV heart rate more than 120BPM 05/13/19 19:45 06/12/19 19:44 Heparin Sodium (Porcine) (Heparin 5000 units/ml) 5,000 units EVERY 8 HOURS SUBQ 05/13/19 22:00 06/12/19 21:59 05/15/19 13:56 Insulin Aspart (NovoLOG) BEFORE MEALS AND HS SUBQ 05/13/19 22:30 06/12/19 22:29 05/15/19 11:47 Insulin Detemir (Levemir) 10 units Q24H SUBQ 05/15/19 08:45 06/14/19 08:44 05/15/19 11:48 Lisinopril (Zestril) 5 mg DAILY ORAL 05/15/19 11:00 06/14/19 10:59 Metoprolol Tartrate (Lopressor) 12.5 mg EVERY 12 HOURS ORAL 05/13/19 22:00 06/12/19 21:59 05/15/19 08:50 Morphine Sulfate (Morphine Sulfate) 2 mg Q3H PRN IVP Severe Pain (Pain Scale 7-10) 05/15/19 13:45 05/22/19 13:44 05/15/19 13:49 Nitroglycerin (Ntg) 0.4 mg Q5MIN X 3 DOSES PRN SL Prn Chest Pain 05/13/19 19:45 06/12/19 19:44 Ondansetron HCl (Zofran) 4 mg Q6H PRN IVP Nausea & Vomiting 05/13/19 19:45 06/12/19 19:44 05/14/19 08:56 Pantoprazole (Protonix) 40 mg DAILY ORAL 05/14/19 09:00 06/13/19 08:59 05/15/19 08:50 Polyethylene Glycol (Miralax) 17 gm DAILYPRN PRN ORAL Constipation 05/13/19 19:45 06/12/19 19:44 Regadenoson (Lexiscan) 0.4 mg ONCE PRN IV CARDIOLOGY 05/14/19 13:52 05/16/19 23:59 Temazepam (Restoril) 15 mg HSPRN PRN ORAL Insomnia 05/13/19 21:00 05/20/19 20:59 Allergies: Coded Allergies: FISH DERIVED (Unverified Allergy, Unknown, 05/13/19) KETOROLAC (Verified Allergy, Unknown, 05/13/19) PENICILLINS (Unverified Allergy, Unknown, 05/13/19) Uncoded Allergies: FISH (Allergy, Unknown, 05/13/19) PENICILLIN (Allergy, Unknown, 05/13/19) Objective Last Vital Signs Date Time Temp Pulse Resp B/P (MAP) Pulse Ox O2 Delivery O2 Flow Rate FiO2 05/15/19 12:00 98.7 70 20 103/61 (75) 98 05/15/19 08:29 Room Air 05/14/19 18:30 21 Laboratory Tests Test 05/15/19 11:45 Sodium Level 134 MMOL/L (136-145) L Potassium Level 3.9 MMOL/L (3.5-5.1) Chloride Level 100 MMOL/L (98-107) Carbon Dioxide Level 25 MMOL/L (21-32) Anion Gap 9 mmol/L (5-15) Blood Urea Nitrogen 14 mg/dL (7-18) Creatinine 0.7 MG/DL (0.55-1.30) Estimat Glomerular Filtration Rate > 60 mL/min (>60) Glucose Level 345 MG/DL (74-106) H Calcium Level 8.9 MG/DL (8.5-10.1) Intake and Output 05/14/19 05/15/19 19:00 07:00 Intake Total 1440 ml Balance 1440 ml Intake Oral 1440 ml # Voids 5 3 Objective PHYSICAL EXAMINATION: GENERAL: The patient is awake, responsive, and in no acute distress. HEAD AND NECK: Pupils are reactive to light. Extraocular movements intact. Neck was supple. No JVD. LUNGS: Good air entry. No wheezing or rales. HEART: Reveals S1 and S2. Regular rhythm. No gallops. ABDOMEN: Soft, nondistended, and nontender. Positive bowel sounds. EXTREMITIES: No cyanosis, clubbing, or edema. NEUROLOGIC: Cranial nerves II through XII grossly intact. Motor is 5/5 in all extremities. Gait is intact. RECTAL AND GENITOURINARY: Refused and deferred. PSYCHIATRIC: Mood and affect is intact. SKIN: Has a tattoo in the bilateral upper extremity as well as trunk area. Assessment/Plan Assessment/Plan ASSESSMENT: 1. Chest pain, possible acute coronary syndrome. 2. History of coronary disease status post percutaneous transluminal coronary angioplasty with stent placement x4. 3. Hyperglycemia=new onset of diabetes type 2. 4. Family history of coronary disease. PLAN: 1. Admit the patient to telemetry. 2. We will follow up with Dr. Hernández from Cardiology and Dr. Olsen from Pulmonary Critical Care. 3. We will try to obtain the stress test results from the [facility] mostly recently done and monitor the troponin level. 4. Code status is Full Code. 5. DVT prophylaxis with heparin subcutaneous. 6. We will resume home medication. 7. Continue humalog sliding scale and levemir. Start metformin Dhaval Bustillos MD May 15, 2019 14:38
[2019-05-15 15:31] VITALS: BP 111/75
[2019-05-15] MEDS ORDERED: Albuterol/Ipratropium 3ml neb HHN SCH ×2 (15:45→19:00)
[2019-05-15] MEDS: metFORMIN 500mg tab ORAL SCH (17:58)
--- NOTE | 2019-05-15 19:10 | NUR ---
NURSE NOTES: Dr. Hernández saw patient.
--- NOTE | 2019-05-15 19:40 | NUR ---
HAND-OFF: Report given to PATRICIA Ferris. patient is resting in bed. No respiratory distress noted.
--- NOTE | 2019-05-15 19:45 | NUR ---
NURSE NOTES: Received pt from PATRICIA Huizar. Pt awake, alert, and talkative. Bed in lowest position. Call light within reach. Will continue to monitor.
--- NOTE | 2019-05-15 19:45 | Cardiac Electrophysiology PN ---
Assessment/Plan Assessment/Plan 1. Chest pain in a pt with 4 stents in the LAD and circumflex in 2016. He is already ruled out for myocardial infarction and his EKG is completely normal. We will try to get the results of his stress test from [facility] and if it is positive, then we will try to transfer the patient to a contracted facility. In the meantime, continue the patient on aspirin, Plavix, and metoprolol and schedule for Stress test on Friday 2. Hypertension. On metoprolol 12.5 mg b.i.d., and lisinopril 5 mg daily. 3. Diabetes . On insulin. Subjective Subjective No CP or SOB. Awaiting stress test re[port from [facility] Objective Last 24 Hour Vital Signs Date Time Temp Pulse Resp B/P (MAP) Pulse Ox O2 Delivery O2 Flow Rate FiO2 05/15/19 17:18 98.3 05/15/19 15:46 69 05/15/19 15:31 98.3 73 18 111/75 (87) 97 05/15/19 12:05 85 18 99 Room Air 21 05/15/19 12:00 98.7 70 20 103/61 (75) 98 05/15/19 11:29 75 05/15/19 11:03 98.2 05/15/19 11:00 106/67 05/15/19 08:50 112 111/69 05/15/19 08:29 Room Air 05/15/19 08:00 98.2 112 18 111/69 (83) 97 05/15/19 07:56 100 05/15/19 04:00 98.0 70 19 119/76 (90) 98 05/15/19 03:59 57 05/15/19 00:00 97.8 68 18 116/74 (88) 97 05/14/19 23:57 68 05/14/19 21:15 68 111/60 05/14/19 21:00 Room Air 05/14/19 20:00 96.8 68 18 111/60 (77) 98 05/14/19 19:56 67 Intake and Output 05/14/19 05/15/19 19:00 07:00 Intake Total 1440 ml Balance 1440 ml Intake Oral 1440 ml # Voids 5 3 Laboratory Tests Test 05/15/19 11:45 Sodium Level 134 MMOL/L (136-145) L Potassium Level 3.9 MMOL/L (3.5-5.1) Chloride Level 100 MMOL/L (98-107) Carbon Dioxide Level 25 MMOL/L (21-32) Anion Gap 9 mmol/L (5-15) Blood Urea Nitrogen 14 mg/dL (7-18) Creatinine 0.7 MG/DL (0.55-1.30) Estimat Glomerular Filtration Rate > 60 mL/min (>60) Glucose Level 345 MG/DL (74-106) H Calcium Level 8.9 MG/DL (8.5-10.1) Objective HEAD AND NECK: Showed no JVD or carotid bruits. LUNGS: Clear. CARDIOVASCULAR: Shows regular S1 and S2 with no gallop or murmur. ABDOMEN: Soft. EXTREMITIES: No pitting edema. Kev Hernández MD May 15, 2019 19:45
[2019-05-15 20:00] VITALS: BP 122/84
[2019-05-15] MEDS: Morphine Sulfate 4mg/ml Inj (IV USE ONLY) IVP PRN (21:28)
[2019-05-16] VITALS: BP 108/68
[2019-05-16] MEDS: Morphine Sulfate 4mg/ml Inj (IV USE ONLY) IVP PRN ×3 (01:33→10:51)
[2019-05-16 04:00] VITALS: BP 110/71
[2019-05-16] MEDS: Heparin 5000 units/ml inj SUBQ SCH ×2 (06:00→14:00)
[2019-05-16] MEDS: NovoLOG Insulin Flexpen SUBQ SCH ×2 (06:21→13:16)
[2019-05-16 06:49] LABS: BASOPHILS % (AUTO) 0.8 % (0.0-2.0); EOSINOPHILS % (AUTO) 2.9 % (0.0-3.0); HEMATOCRIT 32.6 % (42.0-52.0); HEMOGLOBIN 10.5 G/DL (14.2-18.0); LYMPHOCYTES % (AUTO) 38.5 % (20.0-45.0); MEAN CORPUSCULAR VOLUME 66 FL (80-99); MONOCYTES % (AUTO) 8.8 % (1.0-10.0); NEUTROPHILS % (AUTO) 49.1 % (45.0-75.0); PLATELET COUNT 183 K/UL (150-450); RED BLOOD COUNT 4.97 M/UL (4.70-6.10); RED CELL DISTRIBUTION WIDTH 16.2 % (11.6-14.8); WHITE BLOOD COUNT 4.3 K/UL (4.8-10.8)
[2019-05-16 06:54] LABS: ANION GAP 7 mmol/L (5-15); BLOOD UREA NITROGEN 17 mg/dL (7-18); CALCIUM 8.9 MG/DL (8.5-10.1); CARBON DIOXIDE 28 MMOL/L (21-32); CHLORIDE 100 MMOL/L (98-107); CREATININE 0.8 MG/DL (0.55-1.30); POTASSIUM 4.2 MMOL/L (3.5-5.1); SODIUM 134 MMOL/L (136-145)
--- NOTE | 2019-05-16 07:38 | NUR ---
HAND-OFF: Report given to PATRICIA Brice. Pt stable.
[2019-05-16 08:00] VITALS: BP 113/70
--- NOTE | 2019-05-16 08:00 | NUR ---
NURSE NOTES: Received report from PATRICIA Ferris. Patient in bed resting, no active s/s cardiac, respiratory distress noticed at this time. Patient on room air, AOx4. Endorsed stress test schedule for tomorrow 05/17/19. IV on right FA 22G, asymptomatic, patent, intact. Bed in lowest position, side rails upx3, call light within reach. Will continue to monitor.
[2019-05-16] MEDS: metFORMIN 500mg tab ORAL SCH (08:46)
[2019-05-16] MEDS: Metoprolol Tartrate 12.5mg TAB ORAL SCH (08:48)
[2019-05-16] MEDS: Aspirin EC 81mg tab ORAL SCH (08:48)
[2019-05-16] MEDS: Levemir Flexpen SUBQ SCH (08:50)
[2019-05-16] MEDS: Lisinopril 2.5mg tab ORAL SCH (08:51)
--- NOTE | 2019-05-16 09:50 | Pulmonology Progress Note ---
Assessment/Plan Assessment/Plan ASSESSMENT Chest pain in patient with the extensive coronary artery disease Possible ACS Coronary artery disease, status post PTCA and stents x4 History of AR Family history of coronary disease Hyperglycemia New onset of diabetes mellitus, [id number] PLAN OF CARE tele serial troponin negative; EKG revealed no acute ischemic changes, patient was ruled out for acute AR ECHO with pEF 60- 65%, no WMA venous duplex bilateral lower extremity -negative lipid panel stable, TSH WNL urine tox screen negative CXR negative continue with dAPL therapy O2 PRN to keep pulse ox above 90% and HHN PRN DVT, GI prophylaxis BP management with beta-yuri and ALEXUS inhibitor Nitro prn pain management with MS and Nitro , cardio follows nuclear stress test pending BS management with SSI, BS still high, increase Levemir dosage , hemoglobin A1c -12.5, encourage compliance with diet and medications diabetic teaching outpt fup with PCP for optimization of anti-glycemic regimen case discussed and evaluated by supervising physician Subjective Allergies: Coded Allergies: FISH DERIVED (Unverified Allergy, Unknown, 05/13/19) KETOROLAC (Verified Allergy, Unknown, 05/13/19) PENICILLINS (Unverified Allergy, Unknown, 05/13/19) Uncoded Allergies: FISH (Allergy, Unknown, 05/13/19) PENICILLIN (Allergy, Unknown, 05/13/19) Subjective still reports severe intermittent CP with SOB pulse ox stable on RA all troponin negative BS not controlled Objective Last 24 Hour Vital Signs Date Time Temp Pulse Resp B/P (MAP) Pulse Ox O2 Delivery O2 Flow Rate FiO2 05/16/19 08:51 113/70 05/16/19 08:48 64 113/70 05/16/19 08:00 98.2 64 18 113/70 (84) 97 05/16/19 04:00 62 05/16/19 04:00 98.1 84 20 110/71 (84) 97 05/16/19 00:00 76 05/16/19 00:00 98.3 87 20 108/68 (81) 97 05/15/19 23:55 101 18 98 Room Air 21 05/15/19 21:33 88 122/84 05/15/19 21:00 Room Air 05/15/19 20:00 98.6 88 20 122/84 (97) 97 05/15/19 20:00 80 05/15/19 17:18 98.3 05/15/19 15:46 69 05/15/19 15:31 98.3 73 18 111/75 (87) 97 05/15/19 12:05 85 18 99 Room Air 21 05/15/19 12:00 98.7 70 20 103/61 (75) 98 05/15/19 11:29 75 05/15/19 11:03 98.2 05/15/19 11:00 106/67 Intake and Output 05/15/19 05/16/19 19:00 07:00 Intake Total 600 ml Balance 600 ml Intake Oral 600 ml # Voids 3 1 Objective General Appearance: no acute distress HEENT: normocephalic, atraumatic, anicteric, mucous membranes moist, PERRL Respiratory/Chest: lungs clear, no respiratory distress, no accessory muscle use Cardiovascular: normal rate, regular rhythm, no JVD Abdomen: normal bowel sounds, soft, non tender, non distended Extremities: no edema, pedal pulses normal Skin: no rash, other Neurologic/Psychiatric: no motor/sensory deficits, alert, oriented x 3, responsive Musculoskeletal: normal muscle bulk Laboratory Tests 05/15/19 11:45: Sodium Level 134L, Potassium Level 3.9, Chloride Level 100, Carbon Dioxide Level 25, Anion Gap 9, Blood Urea Nitrogen 14, Creatinine 0.7, Estimat Glomerular Filtration Rate > 60, Glucose Level 345H, Calcium Level 8.9 05/15/19 20:15: Troponin I 0.002 05/16/19 06:15: Sodium Level 134L, Potassium Level 4.2, Chloride Level 100, Carbon Dioxide Level 28, Anion Gap 7, Blood Urea Nitrogen 17, Creatinine 0.8, Estimat Glomerular Filtration Rate > 60, Glucose Level 345H, Calcium Level 8.9, White Blood Count 4.3L, Red Blood Count 4.97, Hemoglobin 10.5L, Hematocrit 32.6L, Mean Corpuscular Volume 66L, Mean Corpuscular Hemoglobin 21.1L, Mean Corpuscular Hemoglobin Concent 32.2, Red Cell Distribution Width 16.2H, Platelet Count 183, Mean Platelet Volume 8.0, Neutrophils (%) (Auto) 49.1, Lymphocytes (%) (Auto) 38.5, Monocytes (%) (Auto) 8.8, Eosinophils (%) (Auto) 2.9, Basophils (%) (Auto) 0.8, Hemoglobin A1c 12.5H Current Medications Medications (Trade) Dose Ordered Sig/Geoffrey Route PRN Reason Start Time Stop Time Status Last Admin Dose Admin Acetaminophen (Tylenol) 650 mg Q4H PRN ORAL T>100.5 05/13/19 19:45 06/12/19 19:44 Albuterol/ Ipratropium (Albuterol/ Ipratropium) 3 ml Q4HRT HHN 05/15/19 19:00 05/20/19 18:59 Aspirin (Ecotrin) 81 mg DAILY ORAL 05/15/19 10:00 06/14/19 09:59 05/16/19 08:48 Clopidogrel Bisulfate (Plavix) 75 mg DAILY ORAL 05/14/19 09:00 06/13/19 08:59 05/16/19 08:47 Dextrose (Dextrose 50%) 25 ml Q30M PRN IV Hypoglycemia 05/13/19 20:00 06/12/19 19:45 Dextrose (Dextrose 50%) 50 ml Q30M PRN IV hypoglycemia 05/13/19 20:00 06/12/19 19:59 Diltiazem HCl (Cardizem) 10 mg EVERY HOUR PRN IV heart rate more than 120BPM 05/13/19 19:45 06/12/19 19:44 Heparin Sodium (Porcine) (Heparin 5000 units/ml) 5,000 units EVERY 8 HOURS SUBQ 05/13/19 22:00 06/12/19 21:59 05/15/19 13:56 Insulin Aspart (NovoLOG) BEFORE MEALS AND HS SUBQ 05/13/19 22:30 06/12/19 22:29 05/16/19 06:21 Insulin Detemir (Levemir) 10 units Q24H SUBQ 05/15/19 08:45 06/14/19 08:44 05/16/19 08:50 Lisinopril (Zestril) 5 mg DAILY ORAL 05/15/19 11:00 06/14/19 10:59 Metformin HCl (Glucophage) 500 mg BID ORAL 05/15/19 18:00 06/14/19 17:59 05/16/19 08:46 Metoprolol Tartrate (Lopressor) 12.5 mg EVERY 12 HOURS ORAL 05/13/19 22:00 06/12/19 21:59 05/16/19 08:48 Morphine Sulfate (Morphine Sulfate) 3 mg Q4H PRN IVP Severe Pain (Pain Scale 7-10) 05/15/19 19:00 05/22/19 18:59 05/16/19 06:10 Nitroglycerin (Ntg) 0.4 mg Q5MIN X 3 DOSES PRN SL Prn Chest Pain 05/13/19 19:45 06/12/19 19:44 Ondansetron HCl (Zofran) 4 mg Q6H PRN IVP Nausea & Vomiting 05/13/19 19:45 06/12/19 19:44 05/14/19 08:56 Pantoprazole (Protonix) 40 mg DAILY ORAL 05/14/19 09:00 06/13/19 08:59 05/16/19 08:47 Polyethylene Glycol (Miralax) 17 gm DAILYPRN PRN ORAL Constipation 05/13/19 19:45 06/12/19 19:44 Regadenoson (Lexiscan) 0.4 mg ONCE PRN IV CARDIOLOGY 05/14/19 13:52 05/16/19 23:59 Temazepam (Restoril) 15 mg HSPRN PRN ORAL Insomnia 05/13/19 21:00 05/20/19 20:59 Hanh Devries NP May 16, 2019 09:50
[2019-05-16] MEDS ORDERED: Morphine Sulfate 2mg/ml Inj(IV/IM USE ONLY) IVP PRN (11:02)
[2019-05-16 12:00] VITALS: BP 121/79
--- NOTE | 2019-05-16 13:53 | Cardiology Report ---
APPROVED REPORT EKG Measurement Heart [id number] OK [id number] Normal sinus rhythm Normal ECG
--- NOTE | 2019-05-16 13:56 | NUR ---
NURSE NOTES: Patient request to sign AMA, ID band removed, IV removed, alarm security or surveillance monitor returned to alarm security or surveillance monitor. Patient called on air personality, Left hospital with all belongings.
--- NOTE | 2019-05-16 13:56 | NUR ---
NURSE NOTES: Patient signed AMA, patient stated he need to go home due to family emergency. Dr. Morocho made aware.
--- NOTE | 2019-05-16 14:28 | Internal Med Progress Note ---
Subjective Date of Service: May 16, 2019 Physician Name Dhaval Bustillos Attending Physician Alirio Morocho MD Current Medications Medications (Trade) Dose Ordered Sig/Geoffrey Route PRN Reason Start Time Stop Time Status Last Admin Dose Admin Acetaminophen (Tylenol) 650 mg Q4H PRN ORAL T>100.5 05/13/19 19:45 06/12/19 19:44 Albuterol/ Ipratropium (Albuterol/ Ipratropium) 3 ml Q4HRT HHN 05/15/19 19:00 05/20/19 18:59 Aspirin (Ecotrin) 81 mg DAILY ORAL 05/15/19 10:00 06/14/19 09:59 05/16/19 08:48 Clopidogrel Bisulfate (Plavix) 75 mg DAILY ORAL 05/14/19 09:00 06/13/19 08:59 05/16/19 08:47 Dextrose (Dextrose 50%) 25 ml Q30M PRN IV Hypoglycemia 05/13/19 20:00 06/12/19 19:45 Dextrose (Dextrose 50%) 50 ml Q30M PRN IV hypoglycemia 05/13/19 20:00 06/12/19 19:59 Diltiazem HCl (Cardizem) 10 mg EVERY HOUR PRN IV heart rate more than 120BPM 05/13/19 19:45 06/12/19 19:44 Heparin Sodium (Porcine) (Heparin 5000 units/ml) 5,000 units EVERY 8 HOURS SUBQ 05/13/19 22:00 06/12/19 21:59 05/15/19 13:56 Insulin Aspart (NovoLOG) BEFORE MEALS AND HS SUBQ 05/13/19 22:30 06/12/19 22:29 05/16/19 13:16 Insulin Detemir (Levemir) 10 units BID SUBQ 05/16/19 18:00 06/14/19 08:44 Lisinopril (Zestril) 5 mg DAILY ORAL 05/15/19 11:00 06/14/19 10:59 Metformin HCl (Glucophage) 500 mg BID ORAL 05/15/19 18:00 06/14/19 17:59 05/16/19 08:46 Metoprolol Tartrate (Lopressor) 12.5 mg EVERY 12 HOURS ORAL 05/13/19 22:00 06/12/19 21:59 05/16/19 08:48 Morphine Sulfate (Morphine Sulfate) 2 mg Q4H PRN IVP For Pain 05/16/19 11:02 05/23/19 11:01 Nitroglycerin (Ntg) 0.4 mg Q5MIN X 3 DOSES PRN SL Prn Chest Pain 05/13/19 19:45 06/12/19 19:44 Ondansetron HCl (Zofran) 4 mg Q6H PRN IVP Nausea & Vomiting 05/13/19 19:45 06/12/19 19:44 05/14/19 08:56 Pantoprazole (Protonix) 40 mg DAILY ORAL 05/14/19 09:00 06/13/19 08:59 05/16/19 08:47 Polyethylene Glycol (Miralax) 17 gm DAILYPRN PRN ORAL Constipation 05/13/19 19:45 06/12/19 19:44 Regadenoson (Lexiscan) 0.4 mg ONCE PRN IV CARDIOLOGY 05/14/19 13:52 05/16/19 23:59 Temazepam (Restoril) 15 mg HSPRN PRN ORAL Insomnia 05/13/19 21:00 05/20/19 20:59 Allergies: Coded Allergies: FISH DERIVED (Unverified Allergy, Unknown, 05/13/19) KETOROLAC (Verified Allergy, Unknown, 05/13/19) PENICILLINS (Unverified Allergy, Unknown, 05/13/19) Uncoded Allergies: FISH (Allergy, Unknown, 05/13/19) PENICILLIN (Allergy, Unknown, 05/13/19) ROS Limited/Unobtainable: No Constitutional: Reports: no symptoms HEENT: Reports: no symptoms Cardiovascular: Reports: chest pain Respiratory: Reports: no symptoms Gastrointestinal/Abdominal: Reports: no symptoms Genitourinary: Reports: no symptoms Neurologic/Psychiatric: Reports: no symptoms Subjective 43 YO M admitted with chest pain. Now new onset diabetes. Cover for Int Rich- Dr Morocho. Await Cardiac stress test on Friday05/17/19 Objective Last Vital Signs Date Time Temp Pulse Resp B/P (MAP) Pulse Ox O2 Delivery O2 Flow Rate FiO2 05/16/19 09:51 91 18 98 Room Air 21 05/16/19 08:51 113/70 05/16/19 08:00 98.2 Laboratory Tests Test 05/15/19 20:15 05/16/19 06:15 Troponin I 0.002 ng/mL (0.000-0.056) White Blood Count 4.3 K/UL (4.8-10.8) L Red Blood Count 4.97 M/UL (4.70-6.10) Hemoglobin 10.5 G/DL (14.2-18.0) L Hematocrit 32.6 % (42.0-52.0) L Mean Corpuscular Volume 66 FL (80-99) L Mean Corpuscular Hemoglobin 21.1 PG (27.0-31.0) L Mean Corpuscular Hemoglobin Concent 32.2 G/DL (32.0-36.0) Red Cell Distribution Width 16.2 % (11.6-14.8) H Platelet Count 183 K/UL (150-450) Mean Platelet Volume 8.0 FL (6.5-10.1) Neutrophils (%) (Auto) 49.1 % (45.0-75.0) Lymphocytes (%) (Auto) 38.5 % (20.0-45.0) Monocytes (%) (Auto) 8.8 % (1.0-10.0) Eosinophils (%) (Auto) 2.9 % (0.0-3.0) Basophils (%) (Auto) 0.8 % (0.0-2.0) Sodium Level 134 MMOL/L (136-145) L Potassium Level 4.2 MMOL/L (3.5-5.1) Chloride Level 100 MMOL/L (98-107) Carbon Dioxide Level 28 MMOL/L (21-32) Anion Gap 7 mmol/L (5-15) Blood Urea Nitrogen 17 mg/dL (7-18) Creatinine 0.8 MG/DL (0.55-1.30) Estimat Glomerular Filtration Rate > 60 mL/min (>60) Glucose Level 345 MG/DL (74-106) H Hemoglobin A1c 12.5 % (4.3-6.0) H Calcium Level 8.9 MG/DL (8.5-10.1) Intake and Output 05/15/19 05/16/19 19:00 07:00 Intake Total 600 ml Balance 600 ml Intake Oral 600 ml # Voids 3 1 Objective PHYSICAL EXAMINATION: GENERAL: The patient is awake, responsive, and in no acute distress. HEAD AND NECK: Pupils are reactive to light. Extraocular movements intact. Neck was supple. No JVD. LUNGS: Good air entry. No wheezing or rales. HEART: Reveals S1 and S2. Regular rhythm. No gallops. ABDOMEN: Soft, nondistended, and nontender. Positive bowel sounds. EXTREMITIES: No cyanosis, clubbing, or edema. NEUROLOGIC: Cranial nerves II through XII grossly intact. Motor is 5/5 in all extremities. Gait is intact. RECTAL AND GENITOURINARY: Refused and deferred. PSYCHIATRIC: Mood and affect is intact. SKIN: Has a tattoo in the bilateral upper extremity as well as trunk area. Assessment/Plan Assessment/Plan ASSESSMENT: 1. Chest pain, possible acute coronary syndrome. 2. History of coronary disease status post percutaneous transluminal coronary angioplasty with stent placement x4. 3. Hyperglycemia=new onset of diabetes type 2. 4. Family history of coronary disease. PLAN: 1. Admit the patient to telemetry. 2. We will follow up with Dr. Hernández from Cardiology and Dr. Olsen from Pulmonary Critical Care. 3. We will try to obtain the stress test results from the [facility] mostly recently done and monitor the troponin level. 4. Code status is Full Code. 5. DVT prophylaxis with heparin subcutaneous. 6. We will resume home medication. 7. Continue humalog sliding scale and levemir. Start metformin 8. Await cardiac stress test Friday05/17/19 Dhaval Bustillos MD May 16, 2019 14:27
--- NOTE | 2019-05-16 17:32 | NUR ---
CASE MANAGEMENT: REVIEW 05/15/2019 SI:JOSEE. ACS. T 98.6 HR 88 RR 20 B/P 122/84 SATS 97% ON RA NA 134 GLU 345 IS: LOPRESSOR PO Q12H PLAVIX PO QD LISINOPRIL PO QD INSULIN ASPART SUB AC/HS TELE STATUS DCP: PATIENT TO BE DISCHARGED TO HOME ONCE MEDICALLY CLEARED. PLAN OF CARE: 2D ECHO >>> EF 60% 05/16/2019 DISCHARGED Addendum: 05/16/19 at 1737 by Heidi Alberts PATIENT LEFT AMA
[2019-05-16] MEDS ORDERED: Levemir Flexpen SUBQ SCH (18:00)
--- NOTE | 2019-05-17 09:38 | NUR ---
*-* INSURANCE *-* ALL CLINICALS AND REVIEWS HAVE BEEN FAXED TO: [facility] ALTAGRACIAM:TIM HERNÁNDEZ REF# [id number] P:[phone] F:[phone]
--- NOTE | 2019-05-17 09:52 | Cardiology Report ---
APPROVED REPORT EXAM: Two-dimensional and M-mode echocardiogram with Doppler and color Doppler. INDICATION Left Ventricular Function M-Mode DIMENSIONS IVSd0.9 (0.7-1.1cm)Left Atrium (MM)3.2 (1.6-4.0cm) LVDd5.5 (3.5-5.6cm)Aortic Root3.2 (2.0-3.7cm) PWd1.0 (0.7-1.1cm)Aortic Cusp Exc.2.0 (1.5-2.0cm) LVDs4.0 (2.5-4.0cm) PWs1.4 cm Technically difficult study due to poor acoustic windows. Study quality precludes accurate assessment of regional wall motion. Normal left ventricular chamber size, systolic function and wall motion. Left ventricular ejection fraction estimated to be 60 %. No evidence of left ventricular hypertrophy. Anterior Echo-free space, may be due to pericardial fat or effusion. Left atrial size at upper limits of normal. Right cardiac chamber sizes are within normal limits. Focal aortic valve sclerosis with adequate cusp excursion. Thickened mitral valve leaflets with normal excursion. Mitral annulus and aortic root calcification. Pulmonic valve not well visualized. Normal tricuspid valve structure. IVC dilated at 2.2 cm with physiological collapse. A color flow and spectral Doppler study was performed and revealed: No aortic regurgitation. Trace mitral regurgitation. Normal left ventricular diastolic function. Trace tricuspid regurgitation. Tricuspid systolic velocities suggests peak right ventricular systolic pressure of 15 mmHg. No pulmonic regurgitation present.
--- NOTE | 2019-05-17 12:30 | Discharge Summary ---
Discharge Summary Discharge Summary _ DATE OF ADMISSION: 05/13/2019 DATE OF DISCHARGE: 05/16/2019 Patient left AGAINST MEDICAL ADVICE REASON FOR ADMISSION: 43 years old male with past medical history of myocardial infarction in 2016, status post PTCA with four stents placement, presented to emergency room for evaluation due to chest pain for 2 days. Chest pain reported pressure-like with radiation to the left arm, 7 out of 10 on a scale 1-10. Patient reported taking needed nitroglycerin with some relief , however chest pain recurred. Patient reported that he was at [facility] 2 days ago and had a positive stress test. Patient reported that he was admitted , but left AGAINST MEDICAL ADVICE. He denied alcohol or drug use. He denied associated shortness of breath. Upon evaluation vital signs were stable. Laboratory work-up revealed no leukocytosis , hemoglobin 11.3 , hematocrit 25.8 , platelet count 220. Sodium 134, potassium 5.3. BUN 17, creatinine 1.0. Glucose 540. Anion gap within normal range. CO2 - 28 . Stable LFT. Troponin negative. EKG revealed normal sinus rhythm, no acute ischemic changes. Albumin 4.0. Urine toxicology screen was negative. Chest x-ray demonstrated no acute cardiopulmonary pathology. In emergency department patient received aspirin and insulin , and was admitted to telemetry floor for further management CONSULTANTS: blast furnace auxiliaries supervisor Dr. Ospina pulmonary Dr. Olsen [facility] COURSE: Patient admitted to telemetry floor. Spout Tender and photocopying equipment mechanic closely followed. Serial troponin were negative. EKG revealed no acute ischemic changes. Telemetry showed sinus rhythm. Patient was ruled out for acute MS. CRP was within normal limits. Echocardiogram revealed preserved ejection fraction of 60% with no evidence of left ventricular hypertrophy. No evidence of wall motion abnormality. Right ventricular systolic pressure of 15. Lipid panel was stable. TSH was within normal limits. Dual antiplatelet therapy with aspirin and Plavix continued. Beta yuri continued. Blood pressure was managed with beta-yuri and ALEXUS inhibitor. Nitroglycerin was on board as needed. DVT and GI prophylaxis provided. Pain management was addressed. Supplemental oxygen provided as needed to keep pulse oximetry above 92%. Pulmonary toilet with handheld nebulizing therapy was on board as needed. Nuclear stress test was ordered for Friday. Patient denied prior history of diabetes mellitus. Blood sugar was managed with long acting insulin and sliding scale of short acting insulin as needed. Hemoglobin A1c 12.5, clearly not at goal. Blood sugar improved, still elevated. Patient will need close outpatient follow up with primary care provider to achieve optimal anti-glycemic control. Patient was counseled on adherence to diabetic diet. Basic diabetic teaching provided. Patient decided to leave AGAINST MEDICAL ADVICE . He stated that he had family emergency. The risks and consequences of signing AGAINST MEDICAL ADVICE were discussed with patient in detail. Patient verbalized understanding, nevertheless signed AMA form and left. Patient was counseled on return to ED precautions. Patient was also reminded to follow up with primary care provider for management of newly diagnosed diabetes mellitus. FINAL DIAGNOSES: Chest pain in patient with extensive coronary artery disease Possible acute coronary syndrome Coronary artery disease , status post PTCA x 4 stents History of MS Hyperglycemia with new onset of diabetes mellitus Family history of coronary disease Hanh Devries NP May 17, 2019 12:30
== END 2019-05-16 13:45 | disposition left against medical advice (07) | DRG 198 ==
LOC: EMR 16:50 → 2E 17:37 → EDBEDREQ 20:39 → 2E 05-14 17:10
DX: I24.9 Acute ischemic heart disease, unspecified (principal); E11.65 Type 2 diabetes mellitus with hyperglycemia; Z95.5 Presence of coronary angioplasty implant and graft; I25.2 Old myocardial infarction; Z79.02 Long term (current) use of antithrombotics/antiplatelets; Z79.82 Long term (current) use of aspirin; Z88.0 Allergy status to penicillin; Z88.8 Allergy status to other drugs, medicaments and biological substances; Z87.891 Personal history of nicotine dependence; Z82.49 Family history of ischemic heart disease and other diseases of the circulatory system
CPT/HCPCS: 36415; 71045; 80048; 80053; 80061; 80307; 82550; 82553; 82962; 83036; 84443; 84484; 85025; 85610; 85730; 86140; 93005; 93306; 93970; 94664; 96361; 96374; 96375; 96376; 99285; J1815; J2405; J7620; S5561